=== PATIENT | male | born 1975 | race Caucasian/White ===

== ENCOUNTER 2019-02-05 14:26 | Emergency (ER) | payer OTHER ==
[~2019-02-05] VITALS: Ht 12.7 cm; Wt 3.2 kg
[2019-02-05 14:34] VITALS: BP 116/64
--- NOTE | 2019-02-05 14:41 | NUR ---
PATIENT AMBULATED TO ER BED 1.
--- NOTE | 2019-02-05 14:42 | NUR ---
AAO x4 44 YR OLD MALE BIB FAMILY WITH C/O INTERMITENT FEVER & COUGH, CHEST PAIN WHEN COUGING SINCE THURSDAY AND NAUSEA, DIARRHEA X 5 EPISODES TODAY MED HX: DENIES
--- NOTE | 2019-02-05 15:00 | NUR ---
PATIENT RESTING AT THIS TIME. NO SIGNS OF DISTRESS.
[2019-02-05] MEDS ORDERED: NACL 0.9% 1,000 ML IV ONE (15:30)
[2019-02-05 18:05] VITALS: BP 124/71
--- NOTE | 2019-02-05 18:05 | NUR ---
Patient discharged with v/s stable. Written and verbal after care instructions given and explained. Patient alert, oriented and verbalized understanding of instructions. Ambulatory with steady gait. All questions addressed prior to discharge. ID band removed. Patient advised to follow up with PMD. Rx of IBUPROFEN 600MG AND GUAIATUSSIN AC 100MG-10MG/5ML given. Patient educated on indication of medication including possible reaction and side effects. Opportunity to ask questions provided and answered.
== END 2019-02-05 18:05 | disposition home or self-care (01) ==
LOC: MED 14:26
DX: B34.9 Viral infection, unspecified (principal)
CPT/HCPCS: 71045; 96360; 99283; J7030; Q0092